=== PATIENT | female | born 1980 | race Caucasian/White ===

== ENCOUNTER 2018-02-11 09:00 | Inpatient (IN) | payer OTHER ==
[~2018-02-11] VITALS: Ht 152.4 cm; Wt 2.7 kg
[2018-02-11] MEDS ORDERED: FLEXERIL (10:21)
[2018-02-11] MEDS ORDERED: FOLIC ACID1 MG PO (10:22)
[2018-02-11] MEDS ORDERED: PRENATABS RX T1 EACH PO (10:22)
== END 2018-02-24 12:26 | DRG 766 ==
LOC: OB/GYN 02-21 07:00 → O/R 02-21 07:01 → OB/GYN 02-21 07:01
PROVIDERS: Obstetrics & Gynecology
PROC: 0UL70ZZ Occlusion of Bilateral Fallopian Tubes, Open Approach (ICD-10-PCS; 2018-02-21)
PROC: 4A033R1 Measurement of Arterial Saturation, Peripheral, Percutaneous Approach (ICD-10-PCS; 2018-02-21)
PROC: 10D00Z1 Extraction of Products of Conception, Low, Open Approach (ICD-10-PCS; principal; 2018-02-21 07:00)
DX: O99.02 Anemia complicating childbirth (principal); Z3A.39 39 weeks gestation of pregnancy; Z37.0 Single live birth; Z30.2 Encounter for sterilization; O09.523 Supervision of elderly multigravida, third trimester